=== PATIENT | male | born 1995 | race Caucasian/White ===

== ENCOUNTER 2025-05-22 03:37 | Emergency (ER) | payer OTHER, MEDICAID ==
[~2025-05-22] VITALS: Ht 175.3 cm; Wt 76.4 kg
[2025-05-22 03:45] VITALS: BP 127/70; PULSE 90; RESP 18; TEMP 97.9; O2SAT 100
== END 2025-05-22 06:30 | disposition home or self-care (01) ==
LOC: EMS 03:38
DX: S09.90XA Unspecified injury of head, initial encounter (principal); F10.129 Alcohol abuse with intoxication, unspecified; Y04.0XXA Assault by unarmed brawl or fight, initial encounter; Y93.89 Activity, other specified; Y92.89 Other specified places as the place of occurrence of the external cause; Y99.8 Other external cause status; Y90.9 Presence of alcohol in blood, level not specified
CPT/HCPCS: 70450; 72125; 99284